=== PATIENT | female | born 1980 | race Caucasian/White ===

== ENCOUNTER → 2017-04-20 | Outpatient (CLI) | payer BC ==
--- NOTE | 2017-04-21 16:42 | WOMENS IMAGING REPORT ---
EXAM DESCRIPTION: 3D SCREENING MAMMO BILAT COMPLETED DATE/TIME: 04/20/2017 3:52 pm REASON FOR STUDY: ROUTINE SCREENING; Z12.31 Z12.31 ENCNTR SCREEN MAMMOGRAM FOR MALIGNANT NEOPLASM O F PRAVEENA COMPARISON: None. TECHNIQUE: Standard craniocaudal and mediolateral oblique views of each breast recorded using digita l acquisition and breast tomosynthesis. LIMITATIONS: None. FINDINGS: No masses, calcifications or architectural distortion. No areas of suspicion. Read with the assistance of CAD. .[facility] - R2 Cenova Version 1.3 .[facility] Imaging - R2 Cenova Version 1.3 .[facility] Imaging - R2 Cenova Version 2.4 .[facility] - R2 Cenova Version 2.4 .[facility] - R2 Vacuum Worker Version 9.2 IMPRESSION: NORMAL MAMMOGRAM. BIRADS 1. BREAST DENSITY: a. The breasts are almost entirely fatty. BIRAD: 1 NEGATIVE RECOMMENDATION: ROUTINE SCREENING COMMENT: The patient has been notified of the results by letter per SA requirements. Additional no tification policies are in place for contacting patient with suspicious or incomplete findings. Quality ID #225: The [employer] recommends an annual screening mammogram for women aged 40 years or over. This facility utilizes a reminder system to ensure that all patients receive reminder letters, and/or direct phone calls for appointments. This includes reminders for routine scr eening mammograms, diagnostic mammograms, or other Breast Imaging Interventions when appropriate. Th is patient will be placed in the appropriate reminder system. The [employer] (ACR) has developed recommendations for screening MRI of the breast s in certain patient populations, to be used in conjunction with mammography. Breast MRI surveillanc e may be appropriate for women with more than 20% lifetime risk of developing breast cancer as deter mined by genetic testing, significant family history of the disease, or history of mantle radiation f or Hodgkins Disease. ACR Practice Guidelines 2008. DBT Technology DBT is a type of tomographic mammography. With conventional mammography, overlapping breast tissue ma y make lesions difficult to detect, even with good compression. DBT uses an x-ray tube that rotates a round the breast, taking images at different angles. These images are then combined to create thin sl ices of the breast that the radiologist can view as a 3D reconstruction. The [employer] unit can perform full-field digital mammograms (2D imaging); or DBT (3D imaging); or both, in a combination mode that quickly performs both the mammogram and the tomosynthesis scan while the breast is still compressed. PQRS 6045F: Fluoroscopic imaging is not utilized for breast tomosynthesis. TECHNICAL DOCUMENTATION: FINDING NUMBER: (1) ASSESSMENT: (1) JOB ID: [id number] [employer]- All Rights Reserved
== END ==
LOC: WI 15:36
PROVIDERS: ATTEND Internal Medicine
DX: Z12.31 Encounter for screening mammogram for malignant neoplasm of breast (principal)
CPT/HCPCS: 77063; 77067

== ENCOUNTER → 2017-11-20 | Outpatient (CLI) | payer BC ==
--- NOTE | 2017-11-20 13:02 | RADIOLOGY REPORT (SQ) ---
EXAM DESCRIPTION: U/S NON-OB PELVIS W/O DOP COMPLETED DATE/TIME: 11/20/2017 11:22 am REASON FOR STUDY: PELVIC PAIN COMPARISON: None. TECHNIQUE: Dynamic and static grayscale images acquired of the pelvis via transabdominal approach an d recorded on PACS. Additional selected color Doppler and spectral images recorded. LIMITATIONS: Body habitus, transabdominal technique FINDINGS: UTERUS: Contour normal. No mass. Uterus measures 8.6 x 4.5 x 3.3 cm in size. ENDOMETRIAL STRIPE: No focal or generalized thickening. No masses. Endometrial stripe 8 mm in thickn ess. CERVIX: No nabothian cysts. RIGHT OVARY AND DOPPLER: Normal size, 2.3 x 2.2 x 1.8 cm in size. No worrisome masses. Normal arteria l vascular flow without evidence for torsion. LEFT OVARY AND DOPPLER: Normal size, 2.7 x 2.3 x 1.8 cm in size. No worrisome masses. Normal arterial vascular flow without evidence for torsion. FREE FLUID: None noted. OTHER: No other significant finding. IMPRESSION: LIMITED NEGATIVE PELVIC ULTRASOUND BY TRANSABDOMINAL TECHNIQUE. TECHNICAL DOCUMENTATION: JOB ID: [id number] [employer]- All Rights Reserved Rev-08/07 Reading location - IP/workstation name: [email or web address]
== END ==
LOC: RAD 10:28
PROVIDERS: ATTEND Obstetrics & Gynecology Gynecology
DX: R10.2 Pelvic and perineal pain (principal)
CPT/HCPCS: 76856

== ENCOUNTER → 2018-04-21 | Outpatient (CLI) | payer BC ==
--- NOTE | 2018-04-21 15:36 | WOMENS IMAGING REPORT ---
EXAM DESCRIPTION: 3D SCREENING MAMMO BILAT COMPLETED DATE/TIME: 04/21/2018 10:00 am REASON FOR STUDY: ROUTINE 3D BILATERAL SCREENING,Z12.31 Z12.31 ENCNTR SCREEN MAMMOGRAM FOR MALIGNAN T NEOPLASM OF PRAVEENA COMPARISON: 2018 TECHNIQUE: Standard craniocaudal and mediolateral oblique views of each breast recorded using digita l acquisition and breast tomosynthesis. LIMITATIONS: None. FINDINGS: No masses, calcifications or architectural distortion. No areas of suspicion. Read with the assistance of CAD. .[facility] - R2 Cenova Version 1.3 .[facility] Imaging - R2 Cenova Version 1.3 .[facility] Imaging - R2 Cenova Version 2.4 .[facility] - R2 Cenova Version 2.4 .[facility] - R2 Parking Manager Version 9.2 IMPRESSION: NORMAL MAMMOGRAM. BIRADS 1. BREAST DENSITY: b. There are scattered areas of fibroglandular density. BIRAD: 1 NEGATIVE RECOMMENDATION: ROUTINE SCREENING COMMENT: The patient has been notified of the results by letter per SA requirements. Additional no tification policies are in place for contacting patient with suspicious or incomplete findings. Quality ID #[id number]: The [employer] recommends an annual screening mammogram for women aged 40 years or over. This facility utilizes a reminder system to ensure that all patients receive reminder letters, and/or direct phone calls for appointments. This includes reminders for routine scr eening mammograms, diagnostic mammograms, or other Breast Imaging Interventions when appropriate. Th is patient will be placed in the appropriate reminder system. The [employer] (ACR) has developed recommendations for screening MRI of the breast s in certain patient populations, to be used in conjunction with mammography. Breast MRI surveillanc e may be appropriate for women with more than 20% lifetime risk of developing breast cancer as deter mined by genetic testing, significant family history of the disease, or history of mantle radiation f or Hodgkins Disease. ACR Practice Guidelines 2008. DBT Technology DBT is a type of tomographic mammography. With conventional mammography, overlapping breast tissue ma y make lesions difficult to detect, even with good compression. DBT uses an x-ray tube that rotates a round the breast, taking images at different angles. These images are then combined to create thin sl ices of the breast that the radiologist can view as a 3D reconstruction. The [employer] unit can perform full-field digital mammograms (2D imaging); or DBT (3D imaging); or both, in a combination mode that quickly performs both the mammogram and the tomosynthesis scan while the breast is still compressed. PQRS 6045F: Fluoroscopic imaging is not utilized for breast tomosynthesis. TECHNICAL DOCUMENTATION: FINDING NUMBER: (1) ASSESSMENT: (1) JOB ID: [id number] [employer]- All Rights Reserved Reading location - IP/workstation name: [email or web address]-
== END ==
LOC: WI 09:37
PROVIDERS: ATTEND Obstetrics & Gynecology Gynecology
DX: Z12.31 Encounter for screening mammogram for malignant neoplasm of breast (principal)
CPT/HCPCS: 77063; 77067

== ENCOUNTER → 2019-02-04 | Outpatient (CLI) | payer BC ==
--- NOTE | 2019-02-05 13:08 | RADIOLOGY REPORT (SQ) ---
EXAM DESCRIPTION: MRI THORACIC SPINE WITHOUT COMPLETED DATE/TIME: 02/04/2019 9:13 pm REASON FOR STUDY: M54.15 RADICULOPATHY, THORACOLUMBAR REGION M54.16 RADICULOPATHY, LUMBAR REGION M5 4.15 RADICULOPATHY, THORACOLUMBAR REGION COMPARISON: None. TECHNIQUE: Sagittal and Axial imaging includes T1, T2, STIR and gradient echo sequences. LIMITATIONS: None. FINDINGS: LOCALIZER: No worrisome findings. ALIGNMENT: Normal. VERTEBRAE: Intact. BONE MARROW: Normal. No marrow replacement or reactive changes. HARDWARE: None in the spine. CORD: Normal in size and signal intensity. SOFT TISSUES: No soft tissue masses. THORACIC DISCS T1-T12: No significant spinal stenosis or exit foraminal stenosis. LOWER CERVICAL: Incompletely imaged. No significant spinal stenosis or exit foraminal stenosis. UPPER LUMBAR: Incompletely imaged. No significant spinal stenosis or exit foraminal stenosis. OTHER: No other significant finding. IMPRESSION: NORMAL MRI THORACIC SPINE. TECHNICAL DOCUMENTATION: JOB ID: [id number] [employer]- All Rights Reserved Reading location - IP/workstation name: [email or web address]
--- NOTE | 2019-02-05 13:12 | RADIOLOGY REPORT (SQ) ---
EXAM DESCRIPTION: MRI LUMBAR SPINE WITHOUT COMPLETED DATE/TIME: 02/04/2019 9:13 pm REASON FOR STUDY: M54.16 RADICULOPATHY, LUMBAR REGION M54.16 RADICULOPATHY, LUMBAR REGION M54.15 R ADICULOPATHY, THORACOLUMBAR REGION COMPARISON: Correlated with thoracic spine MRI same date. TECHNIQUE: Sagittal and Axial imaging includes T1, T2, STIR and gradient echo sequences. Coronal T2/ HASTE imaging. LIMITATIONS: None. FINDINGS: VISUALIZED UPPER ABDOMEN: Limited evaluation. No acute or suspicious findings suggested. SEGMENTATION: No transitional anatomy. The lowest well-developed disc space is labeled L5-S1. ALIGNMENT: Anatomic. VERTEBRAE: Intact. BONE MARROW: Normal. No marrow replacement or reactive changes. DISC SIGNAL: Normal. No significant abnormal signal or loss of height. POSTERIOR ELEMENTS: No pars defect. Mild facet arthropathy with slight overgrowth particularly in t he lower lumbar segments. HARDWARE: None in the spine. CORD AND CONUS: Normal in size and signal intensity. Conus at the appropriate level. SOFT TISSUES: No aortic aneurysm seen. No bulky retroperitoneal adenopathy or mass. No paraspinal mas s or fluid. L1-L2: No significant spinal stenosis or exit foraminal stenosis. L2-L3: No significant spinal stenosis or exit foraminal stenosis. L3-L4: Mild facet arthropathy. Slight posterior ligament thickening. Mild bilateral foraminal narro wing. No significant central stenosis. L4-L5: Minimal posterior disc bulging without impingement. Mild facet arthropathy. No significant c entral stenosis. Relatively mild bilateral foraminal narrowing. L5-S1: Mild central broad protrusion is suggested. Mild facet arthropathy. No significant central s tenosis. Relatively mild bilateral foraminal narrowing. LOWER THORACIC: See separate dictation. SACRUM: Visualized upper sacrum intact. OTHER: No other significant findings. IMPRESSION: 1. Mild lower lumbar spondylosis, disc and facet disease as above. No significant central stenosis. 2. No fracture or worrisome bone lesion. No spinal malalignment. TECHNICAL DOCUMENTATION: JOB ID: [id number] 9556[employer]- All Rights Reserved Reading location - IP/workstation name: [email or web address]
== END ==
LOC: RAD 18:13
PROVIDERS: ATTEND Orthopaedic Surgery
DX: M51.15 Intervertebral disc disorders with radiculopathy, thoracolumbar region (principal)
CPT/HCPCS: 72146; 72148

== ENCOUNTER 2019-04-28 12:55 | Emergency (ER) | payer BC ==
[2019-04-28] MEDS ORDERED: NORMAL SALINE 1000 ML 1,000 ML IV ONE ×2 (14:13→17:30)
[2019-04-28] MEDS ORDERED: METOCLOPRAMIDE HCL INJ/PF 10 MG/2 ML SDV IV ONE ×2 (14:13→17:30)
[2019-04-28] MEDS ORDERED: FAMOTIDINE INJ/PF 20 MG/2 ML SDV IV ONE ×2 (14:13→17:30)
--- NOTE | 2019-04-28 14:17 | ER Document Report ---
ED Medical Screen (RME) - General Chief Complaint: Nausea/Vomiting/Diarrhea Stated Complaint: NAUSEA/VOMITING Time Seen by Provider: 04/28/19 14:08 Primary Care Provider: SHIRLEY BAUTISTA JR, [Primary Care Provider] - Follow up as needed Notes: Patient is a 38-year-old female with a history of acid reflux who presents the emergency department with a chief complaint of upper abdominal pain. Patient reports around 330 this morning she woke up with an intense upper abdominal pain that felt like she had knives stabbing into her stomach. Patient reports it feels like extreme acid is burning her her. Patient reports she does have a history of a fatty liver. Patient takes ranitidine and Protonix for her acid reflux. Patient reports after developing the pain she has vomited about 20 times and has had 8-10 episodes of diarrhea. Patient denies blood in her vomitus or stool. Patient denies fever. Patient denies sick contacts. Patient did note she did feel like she was having some left arm weakness over the past 4 days but this has since improved today. Patient reports chills. TRAVEL OUTSIDE OF THE [place] IN LAST 30 DAYS: No - Related Data Allergies/Adverse Reactions: nickel Allergy (Verified 04/28/19 14:08) Sulfa (Sulfonamide Antibiotics) Allergy (Verified 04/28/19 14:08) Home Medications: protonix. rantidine Past Medical History - Social History Chew tobacco use (# tins/day): No Frequency of alcohol use: None Drug Abuse: None Physical Exam - Vital signs Vitals: Temp Pulse Resp BP Pulse Ox 98.5 F 118 H 18 150/81 H 93 04/28/19 13:04 04/28/19 13:04 04/28/19 13:04 04/28/19 13:04 04/28/19 13:04 Course - Re-evaluation Re-evalutation: 04/28/19 14:15 Patient does not have any specific abdominal tenderness with palpation. Patient is noted to be tachycardic in triage with a heart rate of 118. Per the EMS report they did give 4 mg of Zofran and some IV fluids. Will obtain basic lab work, give a liter of IV saline and give some Reglan. Patient updated on plan of care. Patient to be reevaluated by another provider when placed into a private room. I have greeted and performed a rapid initial assessment of this patient. A comprehensive ED assessment and evaluation of the patient, analysis of test results and completion of the medical decision making process will be conducted by additional ED providers. - Vital Signs Vital signs: Temp Pulse Resp BP Pulse Ox 98.5 F 118 H 18 150/81 H 93 04/28/19 13:04 04/28/19 13:04 04/28/19 13:04 04/28/19 13:04 04/28/19 13:04 Doctor's Discharge - Discharge Referrals: SHIRLEY BAUTISTA JR, [Primary Care Provider] - Follow up as needed
[2019-04-28 15:06] LABS: HEMATOCRIT 44.7 % (36.0-47.0); HEMOGLOBIN 15.6 g/dL (12.0-15.5); MEAN CORPUSCULAR HEMOGLOBIN 29.2 pg (27.0-33.4); MEAN CORPUSCULAR HGB CONC 34.9 g/dL (32.0-36.0); MEAN CORPUSCULAR VOLUME 84 fl (80-97); PLATELET COUNT 276 10^3/uL (150-450); RED BLOOD COUNT 5.36 10^6/uL (3.72-5.28); RED CELL DISTRIBUTION WIDTH 13.2 % (11.5-14.0); WHITE BLOOD COUNT 10.1 10^3/uL (4.0-10.5)
[2019-04-28 15:18] LABS: APPEARANCE,URINE SLIGHTLY-CLOUDY; BILIRUBIN,URINE NEGATIVE (NEGATIVE); COLOR,URINE YELLOW; GLUCOSE, URINE NEGATIVE (NEGATIVE); KETONES,URINE NEGATIVE (NEGATIVE); LEUKOCYTE ESTERASE,URINE NEGATIVE (NEGATIVE); NITRITE,URINE NEGATIVE (NEGATIVE); PROTEIN,URINE 30 mg/dL (NEGATIVE); URINE SPECIFIC GRAVITY 1.021; UROBILINOGEN,URINE NEGATIVE mg/dL (<2.0)
[2019-04-28 15:24] LABS: ALBUMIN 4.6 g/dL (3.5-5.0); ALKALINE PHOSPHATASE 87 U/L (38-126); ANION GAP 11 (5-19); ASPARTATE AMINO TRANSFERASE 22 U/L (14-36); BILIRUBIN,TOTAL 0.7 mg/dL (0.2-1.3); BLOOD UREA NITROGEN 12 mg/dL (7-20); CALCIUM 9.2 mg/dL (8.4-10.2); CARBON DIOXIDE 27 mmol/L (22-30); CHLORIDE 100 mmol/L (98-107); GLUCOSE 113 mg/dL (75-110); POTASSIUM 4.4 mmol/L (3.6-5.0); TOTAL PROTEIN 7.6 g/dL (6.3-8.2)
[2019-04-28 15:38] LABS: ABSOLUTE LYMPHOCYTES# (MANUAL) 0.5 10^3/uL (0.5-4.7); ABSOLUTE MONOCYTES # (MANUAL) 0.2 10^3/uL (0.1-1.4); BASOPHILS % (MANUAL) 2 % (0-2); EOSINOPHILS % (MANUAL) 0 % (0-6); LYMPHOCYTES % (MANUAL) 5 % (13-45); MONOCYTES % (MANUAL) 2 % (3-13); SEGMENTED NEUTROPHILS % (MAN) 91 % (42-78); TOTAL CELLS COUNTED 100
[2019-04-28 15:39] LABS: PLATELET COMMENT ADEQUATE; RBC MORPHOLOGY COMMENT NORMO-CYTIC/CHROMIC
[2019-04-28] MEDS ORDERED: KETOROLAC TROMETHAMINE INJ/PF 30 MG/1 ML SDV IV ONE (17:45)
--- NOTE | 2019-04-28 17:48 | ER Document Report ---
ED GI/ - General Chief Complaint: Nausea/Vomiting/Diarrhea Stated Complaint: NAUSEA/VOMITING Time Seen by Provider: 04/28/19 14:08 Primary Care Provider: SHIRLEY BAUTISTA JR, DO [ACTIVE PROVISIONAL STAFF] - Follow up as needed Mode of Arrival: Ambulatory Information source: Patient Notes: 38-year-old woman presents to the emergency department with a complaint of na usea vomiting diarrhea with cramping abdominal pain which began early this morning. She denies ingesting food that may have been spoiled or exposure to known-ill contact. She also denies a prior history of similar episodes. TRAVEL OUTSIDE OF THE [place] IN LAST 30 DAYS: No - Related Data Allergies/Adverse Reactions: nickel Allergy (Verified 04/28/19 14:08) Sulfa (Sulfonamide Antibiotics) Allergy (Verified 04/28/19 14:08) Home Medications: protonix. rantidine Past Medical History - Social History Smoking Status: Unknown if Ever Smoked Chew tobacco use (# tins/day): No Frequency of alcohol use: None Drug Abuse: None Family History: Reviewed & Not Pertinent Patient has suicidal ideation: No Patient has homicidal ideation: No Review of Systems - Review of Systems Notes: Constitutional: Negative for fever. HENT: Negative for sore throat. Eyes: Negative for visual changes. Cardiovascular: Negative for chest pain. Respiratory: Negative for shortness of breath. Gastrointestinal: + Abdominal pain, + vomiting + diarrhea. Genitourinary: Negative for dysuria. Musculoskeletal: Negative for back pain. Skin: Negative for rash. Neurological: Negative for headaches, weakness or numbness. 10 point ROS negative except as marked above and in HPI. Physical Exam - Vital signs Vitals: Temp Pulse Resp BP Pulse Ox 98.5 F 118 H 18 150/81 H 93 04/28/19 13:04 04/28/19 13:04 04/28/19 13:04 04/28/19 13:04 04/28/19 13:04 Patient was given IV fluids, antiemetic medications and treatment for migraine headache. She is able to keep down fluids and states that she is now ready to go home. She is being discharged with plan to follow-up with her primary care doctor as needed. She may return to the emergency department if needed. - Notes Notes: PHYSICAL EXAMINATION: Physical Exam: General: Well-nourished well-developed woman in moderate distress secondary to abdominal pain HEENT: NC/AT, pupils equal round and reactive to light, MM moist,nares clear, Neck: supple, no adenopathy, no masses. Lungs: clear, no wheezing, no rales no rhonchi CVS: Regular rate and rhythm no murmur gallop or rub Abdomen: Soft, active, tenderness in the epigastric region and right upper quadrant region, no masses, no hepatosplenomegaly Ext: No edema clubbing or cyanosis. Neuro: Alert and responsive, moving all 4 extremities on command, cranial nerves intact. Skin: Intact no open lesions, no rash PSYCH: Normal mood, normal affect. Course - Vital Signs Vital signs: Temp Pulse Resp BP Pulse Ox 99.5 F 118 H 18 137/98 H 98 04/28/19 22:41 04/28/19 22:41 04/28/19 22:41 04/28/19 22:41 04/28/19 22:41 - Laboratory Result Diagrams: 04/28/19 14:51 04/28/19 14:51 Laboratory results interpreted by me: 04/28/19 04/28/19 04/28/19 14:51 14:51 14:51 RBC 5.36 H Hgb 15.6 H Seg Neuts % (Manual) 91 H Lymphocytes % (Manual) 5 L Monocytes % (Manual) 2 L Abs Neuts (Manual) 9.2 H Creatinine 0.43 L Glucose 113 H Urine Protein 30 H 04/28/19 22:18 I have reviewed laboratory data and used this information for the treatment decisions regarding the patient. Discharge - Discharge Clinical Impression: Enteritis, Migraine Nausea and vomiting Qualifiers: Vomiting type: unspecified Vomiting Intractability: unspecified Qualified Code(s): R11.2 - Nausea with vomiting, unspecified Diarrhea Qualifiers: Diarrhea type: unspecified type Qualified Code(s): R19.7 - Diarrhea, unspecified Condition: Good Disposition: HOME, SELF-CARE Instructions: Antinausea Medication ([facility]), Vomiting ([facility]) Additional Instructions: You were diagnosed with enteritis in the emergency department tonight with associated nausea vomiting and diarrhea are symptoms of enteritis. Please push fluids, use Phenergan for nausea, Bentyl for cramping abdominal pain and follow- up with your primary care doctor as needed. You may return to the emergency department if needed. Prescriptions: Dicyclomine HCl [Bentyl 10 mg Capsule] 1 cap PO TID #20 cap Promethazine HCl [Phenergan 25 mg Tablet] 1 - 2 tab PO Q6H PRN #10 tablet PRN Reason: Referrals: SHIRLEY BAUTISTA JR, DO [ACTIVE PROVISIONAL STAFF] - Follow up as needed
[2019-04-28] MEDS ORDERED: PROCHLORPERAZINE EDISYLATE INJ 10 MG/2 ML VIAL IV ONE (19:47)
[2019-04-28] MEDS ORDERED: DIPHENHYDRAMINE HCL 50 MG/ML VIAL IV ONE (20:18)
[2019-04-28 22:42] VITALS: BP 137/98
== END 2019-04-28 22:43 | disposition home or self-care (01) ==
LOC: ER 12:55
DX: K52.9 Noninfective gastroenteritis and colitis, unspecified (principal); G43.909 Migraine, unspecified, not intractable, without status migrainosus; R11.2 Nausea with vomiting, unspecified; R10.9 Unspecified abdominal pain; R10.816 Epigastric abdominal tenderness; R10.811 Right upper quadrant abdominal tenderness; Z91.048 Other nonmedicinal substance allergy status; Z79.899 Other long term (current) drug therapy; Z88.2 Allergy status to sulfonamides
CPT/HCPCS: 99284; 96361; 96374; 96375; 36415; 83690; 84703; 85025; 80053; 81001; J1200; J1885; J2765; J0780; J7030; S0028